=== PATIENT | female | born 1995 | race Caucasian/White ===

== ENCOUNTER → 2016-10-16 | Outpatient (CLI) | payer OTHER ==
[~2016-10-16] MED LIST: IMP/50 PO; POLY335019 PO; SENN-61 PO
--- NOTE | 2016-10-16 16:27 | DIAGNOSTIC IMAGING REPORT ---
KUB CLINICAL HISTORY: Abdominal pain. Constipation. COMPARISON STUDY: 09/01/2016 FINDINGS: There are no calcification suspicious for renal calculi. There is no pathologic bowel dilatation. The bowel gas pattern is felt to be normal. There is slight decrease in the amount of right colonic stool. IMPRESSION: 1. Unremarkable bowel gas pattern 2. No renal calculi identified. Electronically signed by: Keyon Nails M.D. 10/16/2016 4:26 PM Dictated Date/Time: 10/16/2016 4:25 PM
== END | disposition home or self-care (01) ==
LOC: C.RAD 15:41
DX: R10.9 Unspecified abdominal pain (principal); K59.00 Constipation, unspecified